=== PATIENT | male | born 1990 | race Caucasian/White ===

== ENCOUNTER 2017-01-31 22:11 | Emergency (ER) | payer MEDICAID ==
[~2017-01-31] VITALS: Ht 182.9 cm; Wt 66.9 kg
[2017-01-31 22:12] VITALS: BP 126/82
== END 2017-01-31 22:46 | disposition home or self-care (01) ==
LOC: ED 22:29
DX: L03.211 Cellulitis of face (principal); F17.200 Nicotine dependence, unspecified, uncomplicated
CPT/HCPCS: 99283